=== PATIENT | male | born 1985 | race Caucasian/White ===

== ENCOUNTER 2019-08-17 10:31 | Outpatient (CLI) | payer OTHER ==
--- NOTE | 2019-08-17 11:10 | RAD ---
PA AND LATERAL VIEWS CHEST: HISTORY: Chronic cough. FINDINGS: The cardiomediastinum is normal. The lungs are expanded and clear. The bony thorax is normal. IMPRESSION: Normal exam. POS: [facility]
== END 2019-08-17 10:32 | disposition home or self-care (01) ==
LOC: SCSRAD 10:31
PROVIDERS: ATTEND Family Medicine
DX: R05 Cough (principal)
CPT/HCPCS: 71046